=== PATIENT | female | born 1995 | race Caucasian/White ===

== ENCOUNTER 2017-11-04 16:08 | Emergency (ER) | payer OTHER ==
[2017-11-04 16:29] VITALS: BP 108/67
--- NOTE | 2017-11-04 16:45 | EDPHY ---
H & P Stated Complaint: Pt. states while at work aprox 1530 pt.hit lt front tooth chipping it Time Seen by Provider: 11/04/17 16:34 HPI/ROS: CHIEF COMPLAINT: Dental fracture HISTORY OF PRESENT ILLNESS: The patient is a 22-year-old female who comes to the emergency department complaining of a dental fracture tooth 9. She was hitting a metal sink with a hammer when it bounced-back and hit her in the tooth. She denies other injuries. She is here to comply with her worker's compensation and get a referral to a dentist. REVIEW OF SYSTEMS: Constitutional: denies: chills, fever, recent illness, recent injury EENTM: See HPI Respiratory: denies: cough, shortness of breath Cardiac: denies: chest pain, irregular heart rate, lightheadedness, palpitations Gastrointestinal/Abdominal: denies: abdominal pain, diarrhea, nausea, vomiting, blood streaked stools Genitourinary: denies: dysuria, frequency, hematuria, pain Musculoskeletal: denies: joint pain, muscle pain Skin: denies: lesions, rash, jaundice, bruising Neurological: denies: headache, numbness, paresthesia, tingling, dizziness, weakness Hematologic/Lymphatic: denies: blood clots, easy bleeding, easy bruising Immunologic/allergic: denies: HIV/AIDS, transplant EXAM: GENERAL: Well-appearing, well-nourished and in no acute distress. HEAD: Atraumatic, normocephalic. EYES: Pupils equal round and reactive to light, extraocular movements intact, sclera anicteric, conjunctiva are normal. ENT: Small chip like fracture from tooth 9., no pulp visible, no bleeding, no laxity or depression NECK: Normal range of motion, supple without lymphadenopathy or JVD. LUNGS: Breath sounds clear to auscultation bilaterally and equal. No wheezes rales or rhonchi. HEART: Regular rate and rhythm without murmurs, rubs or gallops. ABDOMEN: Soft, nontender, normoactive bowel sounds. No guarding, no rebound. No masses appreciated. BACK: No CVA tenderness, no spinal tenderness, step-offs or deformities EXTREMITIES: Normal range of motion, no pitting or edema. No clubbing or cyanosis. NEUROLOGICAL: Cranial nerves II through XII grossly intact. Normal speech, normal gait. 5 strength, normal movement in all extremities, normal sensation PSYCH: Normal mood, normal affect. SKIN: Warm, dry, normal turgor, no visible rashes or lesions. Source: Patient Exam Limitations: No limitations - Personal History LMP (Females 10-55): Unknown Current Tetanus Diphtheria and Acellular Pertussis (TDAP): Unsure - Medical/Surgical History Hx Asthma: No Hx Chronic Respiratory Disease: No Hx Diabetes: No Hx Cardiac Disease: No Hx Renal Disease: No Hx Cirrhosis: No Hx Alcoholism: No Hx HIV/AIDS: No Hx Splenectomy or Spleen Trauma: No Other PMH: MEd hx-transgender. Surg-none - Family History Significant Family History: No pertinent family hx - Social History Smoking Status: Never smoked Alcohol Use: Sober Drug Use: None Constitutional: Initial Vital Signs Temperature (C) 36.9 C 11/04/17 16:23 Heart Rate 93 11/04/17 16:23 Respiratory Rate 16 11/04/17 16:23 Blood Pressure 108/67 11/04/17 16:23 O2 Sat (%) 95 11/04/17 16:23 O2 Delivery Mode Room Air Allergies/Adverse Reactions: No Known Allergies Allergy (Verified 11/04/17 16:22) Home Medications: Medication Instructions Recorded Estradiol 11/04/17 Spironolactone 11/04/17 ED Images - Head Mouth: 1 - Dental fracture, no pulp visible no bleeding Medical Decision Making ED Course/Re-evaluation: I left a message with dental aid at 4:40 p.m. On their after hours line to have her follow up tomorrow. I will also refer her to several other dentists. This is her primary request to jump through the hoops for worker's compensation. Her tooth is covered with bone wax. Differential Diagnosis: Partial list of the Differential diagnosis considered include but were not limited to; dental fracture, assault, and although unlikely based on the history and physical exam, I also considered pulpitis, cavity, avulsion, compression. I discussed these differential diagnoses and the plan with the patient as well as the usual and expected course. The patient understands that the diagnosis is provisional and that in medicine we are not always correct and that further workup is often warranted. Usual and customary warnings were given. All of the patient's questions were answered. The patient was instructed to return to the emergency department should the symptoms at all worsen or return, otherwise to followup with the physician as we discussed. Departure - Departure Disposition: Home, Routine, Self-Care Clinical Impression: Fracture, tooth Qualifiers: Encounter type: initial encounter Fracture type: open Qualified Code(s): S02.5XXB - Fracture of tooth (traumatic), initial encounter for open fracture Condition: Fair Instructions: Acute Dental Trauma (ED) Additional Instructions: I left a message with dental aid who should be calling you to set up appointment tomorrow. Go ahead and call the other dentists office as well to see who can give you the released appointment. Referrals: NONE *PRIMARY CARE P,. [Primary Care Provider] - As per Instructions [facility] [Outside] - As per Instructions Dental [facility] [Outside] - As per Instructions Dental [facility] [Outside] - As per Instructions [facility] [Outside] - As per Instructions
== END 2017-11-04 17:13 | disposition home or self-care (01) ==
LOC: EDSEX 16:08 → CED 16:08
DX: S02.5XXB Fracture of tooth (traumatic), initial encounter for open fracture (principal); W22.8XXA Striking against or struck by other objects, initial encounter; Y92.69 Other specified industrial and construction area as the place of occurrence of the external cause; Y99.0 Civilian activity done for income or pay; Y93.89 Activity, other specified